=== PATIENT | male | born 1955 | race Caucasian/White ===

== ENCOUNTER 2019-11-05 08:11 | Outpatient (CLI) | payer BC, SELFPAY ==
--- NOTE | ~2019-11-05 | CT_ITS ---
EXAMINATION: CT abdomen pelvis w con EXAM DATE: 11/05/2019 08:47 INDICATION: Prostate cancer . TECHNIQUE: Spiral CT of the abdomen and pelvis was performed following intravenous injection of 100 m L Omnipaque 350. Axial, coronal and sagittal images were reviewed. The dose-length product (DLP) fo r this examination was 613.98 mGy-cm. The exposure was tailored according to patient size (auto mA e xposure control), and iterative reconstruction (ASIR) was used as additional dose reduction technique . There is no prior study for comparison. FINDINGS: The liver, spleen, adrenal glands and pancreas are unremarkable. Gallbladder is unremarkab le. No biliary obstruction. Portal and splenic veins are patent. Kidneys enhance symmetrically. T here is no hydronephrosis. The prostate is unremarkable. The bladder is unremarkable. There is no retroperitoneal or pelvic lymphadenopathy. Small umbilical fat-containing hernia. The appendix is normal. The stomach and small bowel are unremarkable. There is moderate descending a nd sigmoid colonic diverticulosis. There is no adjacent inflammatory change to suggest diverticuliti s. No free intraperitoneal gas. The heart is normal in size. There are no pericardial or pleura l effusions. The lung bases are unremarkable. There are no osteoblastic or osteolytic lesions ident ified. IMPRESSION: 1. Moderate colonic diverticulosis. 2. No evidence of metastatic disease. Reviewed, dictated and finalized at location B.
[2019-11-05 08:35] LABS: Estimated Glomerular Filt Rate > 60
== END 2019-11-05 08:12 | disposition home or self-care (01) ==
PROVIDERS: PCP Internal Medicine; Visit Provider Urology
DX: C61 Malignant neoplasm of prostate (principal); K57.30 Diverticulosis of large intestine without perforation or abscess without bleeding
CPT/HCPCS: 36415; 74177; Q9967

== ENCOUNTER 2019-12-18 09:43 | Outpatient (CLI) | payer BC, SELFPAY ==
--- NOTE | 2019-12-18 10:58 | ECG_ITS ---
Measurements Intervals Hunter Rate: 68 P: -1 VA: 228 QRS: -45 QRSD: 113 T: -22 QT: 408 QTc: 436 Interpretive Statements SINUS RHYTHM WITH FIRST DEGREE AV BLOCK VENTRICULAR COUPLET LEFT ANTERIOR FASCICULAR BLOCK POSSIBLE LEFT VENTRICULAR HYPERTROPHY BORDERLINE T WAVE ABNORMALITY- INFERIOR LEADS BASELINE ARTIFACT- I, II, III, AVR, AVL, AVF ABNORMAL ECG Electronically Signed On 12-18-2019 11:21:11 CDT by Alexey Denney D.O.
[2019-12-18 11:20] LABS: Eosinophils Absolute Auto 0.1 K/mm3 (0-0.3); Eosinophils Percent Auto 1.9 % (0-4.4); Hematocrit 46.9 % (42.0-52.0); Hemoglobin 16.7 g/dL (14.0-18.0); Immature Granulocyte Absolute 0.03 K/mm3 (0.00-0.031); Immature Granulocyte Percent A 0.7 % (0-0.5); Lymphocytes Absolute Auto 1.11 K/mm3 (0.9-3.2); Lymphocytes Percent Auto 26.7 % (18.3-44.2); Mean Corpuscular HGB Conc 35.6 g/dl (32-36); Mean Corpuscular Hemoglobin 32.7 pg (26-34); Mean Platelet Volume 9.3 fl (7.4-10.4); Monocytes Absolute Auto 0.4 K/mm3 (0.1-0.6); Monocytes Percent Auto 9.2 % (2.6-8.5); Neutrophils Absolute Auto 2.5 K/mm3 (1.3-6.7); Neutrophils Percent Auto 60.5 % (45.5-73.1); Platelet Count Result 209 k/mm3 (150-375); Red Cell Distribution Width 11.9 % (11.5-14.5); White Blood Count 4.2 K/mm3 (4.5-10.0)
[2019-12-18 11:30] LABS: Partial Thromboplastin Time 28.1 SECONDS (22.3-36.8)
[2019-12-18 11:33] LABS: Alanine Aminotransferase 31 U/L (4-50); Albumin Level 4.8 g/dL (3.5-5.1); Alkaline Phosphatase 65 U/L (38-126); Aspartate Amino Transferase 30 U/L (17-59); Bilirubin,Total 1.3 mg/dL (0.2-1.3); Blood Urea Nitrogen 21 mg/dL (9-20); Calcium 9.4 mg/dL (8.4-10.2); Carbon Dioxide 31 mmol/L (22-30); Chloride 101 mmol/L (98-107); Estimated Glomerular Filt Rate > 60; Glucose 101 mg/dL (75-110); Sodium 139 mmol/L (137-145)
== END 2019-12-18 09:44 | disposition home or self-care (01) ==
LOC: ANHSURGERY 09:46
PROVIDERS: PCP Internal Medicine; Visit Provider Urology
DX: C61 Malignant neoplasm of prostate (principal); E78.00 Pure hypercholesterolemia, unspecified; I44.0 Atrioventricular block, first degree; I44.4 Left anterior fascicular block
CPT/HCPCS: 36415; 80053; 85025; 85610; 85730; 86850; 86900; 86901; 87086; 93005

== ENCOUNTER 2019-12-26 01:31 | Outpatient (CLI) | payer BC, SELFPAY ==
[2019-12-26 18:01] LABS: SARS-CoV-2 RNA PCR Negative
== END 2019-12-26 01:32 | disposition home or self-care (01) ==
LOC: ANHCOVIDDT 01:31
PROVIDERS: PCP Internal Medicine; Visit Provider Urology
DX: Z01.812 Encounter for preprocedural laboratory examination (principal); Z20.828 Contact with and (suspected) exposure to other viral communicable diseases
CPT/HCPCS: 87635; C9803; U0003

== ENCOUNTER → 2019-12-29 03:47 | Day surgery (SDC) | payer BC, SELFPAY ==
[2019-12-18 09:55] VITALS: BP 157/93; PULSE 74; RESP 16; TEMP 37.1; O2SAT 96; BMI 27.8
--- NOTE | 2019-12-28 13:43 | WPDANESEPPF ---
Anes - Initial Pre Proc Eval Procedure: Operation Date: 12/29/19 07:30 Proposed Procedures p Robotic Assisted Nerve Sparing Prostatectomy, Possible Pelvic Lymph Node Dissection - Francisco Javier Ortiz MD Date/Time: 12/28/19 13:43 Surgeon: Francisco Javier Ortiz MD Pre Op Diagnosis: Prostate Cancer Patient Data Age: 64 Gender: M Height: 1.83 m Weight: 93.2 kg Last Vital Signs Temp 37.1 C 12/18/19 09:55 Pulse 74 12/18/19 09:55 Resp 16 12/18/19 09:55 BP 157/93 H 12/18/19 09:55 Pulse Ox 96 12/18/19 09:55 Allergies Allergy/AdvReac Type Severity Reaction Status Date / Time No Known Allergies Allergy Verified 12/18/19 10:05 Home Medications Medication Instructions Recorded Confirmed Type naproxen sodium 220 mg capsule 220 mg PO BID 03/19/19 12/18/19 History tadalafil 5 mg tablet 5 mg PO DAILY 90 Days #90 tablet 07/01/19 12/18/19 Rx simvastatin 20 mg tablet 40 mg PO QPM #180 tablet 07/07/19 12/18/19 Rx levothyroxine 50 mcg tablet 50 mcg PO DAILY #90 tablet 11/17/19 12/18/19 Rx calcium carbonate-vitamin D3 1 tablet PO DAILY 12/18/19 12/18/19 History [Calcium 600 + D(3)] esomeprazole magnesium [Nexium 20 mg PO DAILY 12/18/19 12/18/19 History 24HR] glucosamine-chondroitin 30 ml PO BID 12/18/19 12/18/19 History mecobalamin (vitamin B12) 5,000 mcg PO DAILY 12/18/19 12/18/19 History potassium chloride 99 meq PO DAILY 12/18/19 12/18/19 History Patient hx anesthesia problems: none Family hx anesthesia problems: none PMFSH Past Medical History Medical History (Updated 12/29/19 @ 06:52 by Eduardo Quijano MD) Cancer PROSTATE CANCER DIAGNOSED ~SEP, 2019 Gastroesophageal reflux disease Hypothyroidism, unspecified Mixed hyperlipidemia Overweight (BMI 25.0-29.9) Surgical History Surgical History (Updated 03/19/19 @ 13:37 by Deborah Israel RN) History of bilateral knee replacement History of hernia surgery Family History Family History (Updated 12/09/15 @ 23:19 by DOCTOR UNKNOWN) Father Malignant neoplasm of prostate Family history of diabetes mellitus in first degree relative Social History Social History Smoking status: Never smoker Second hand tobacco smoke exposure: No Alcohol intake: current Drinks per week: 4 Substance use: never Substance use type: does not use Living arrangements: with family Spiritual care concerns: No Anes - Eval Final PreProcedure Day of Procedure 12/28/19 13:43 Patient weight: overweight Heart: regular rate and rhythm Lungs: clear to auscultation and normal air movement Airway: Mallampati scale class II Neurological: alert and oriented Last oral intake: >/= 8 hours ASA classification: III Emergent: no Anesthetic plan: proceed Anesthesia type and monitoring: general ETT Informed Consent: The patient's anesthetic plan and its attendant risks and benefits were discussed with the patient/family/POA. Questions were solicited and answers provided to the satisfaction of the patient/family/POA.
[2019-12-29] VITALS (11 sets, daily range): BP systolic 111–146; BP diastolic 78–91; PULSE 75–95; RESP 11–20; TEMP 36.7–37.2; O2SAT 91–99; BMI 26.8
[2019-12-29] MEDS: LACTATED RINGERS 1,000 ML 30 ML IV CONT ×2 (06:25→12:48)
--- NOTE | 2019-12-29 07:18 | WPDHPUPDATE1 ---
History and Physical Update Update Date/Time: 12/29/19 07:18 History and Physical has been reviewed, including an updated exam of the patient. There are NO changes in the patient's condition. Risks, benefits, and alternatives have been discussed and questions answered. Patient agrees to proceed with procedure. Proceed with robotic assist nerver sparing prostatectomy with possible bilateral PLND
[2019-12-29] MEDS: ceFAZolin 2 GM/D5W 50 ML 2 GM/50 ML BAG IVPB (07:27)
--- NOTE | 2019-12-29 12:25 | P.OP_ITS ---
Procedure Note - Detailed Date of procedure: 12/29/19 Pre-op diagnosis: Prostate Cancer Post-op diagnosis: same (Significant adhesions of bowel to bilateral inguinal hernia repairs) Procedure performed: lysis of a significant bowel adhesions to prior inguinal hernia repairs Robotic assisted nerve-sparing prostatectomy with left pelvic lymph node dissection Description of procedure: patient is taken the operative suite and correctly identified. Once anesthesia was obtained he was placed in the low lying dorsal lithotomy position and prepped and draped usual sterile fashion. 18 Danish Motta was placed with 20 cc in the balloon. A supraumbilical incision was then made carried down to the rectus fascia. Veress needle was inserted the abdomen was insufflated to 15 mmHg pressure. Camera was placed under direct vision. Working ports were placed in the appropriate locations. The robot was then docked after the patient was placed in steep Trendelenburg position. It was noted that the had a significant amount of adhesions of his colon to the prior inguinal hernia repairs with mesh. It took at least 1/2 hour to 40 minutes to take these all down. Was also noted that he has significant diverticulosis of his sigmoid colon to his colon was fixated down in the pelvic area which we were able to finally mobilized. We did a posterior approach. Seminal vesicles were dissected out in their entirety and the vas were transected. The plane between the prostate and rectum was developed. bladder was then taken down. Puboprostatic were incised as was the endopelvic fascia. The space of Retzius was developed. Dorsal venous complex was isolated using 0 Vicryl secured to the pubic bone. Anterior bladder neck was then opened. Posterior bladder neck was also incised. The prior dissected seminal vesicles were visualized. We then did bilateral nerve-sparing which took a wider resection on the left side due to the significant amount of carcinoma present there. Clips were used on the pedicles. Dorsal venous complex was then transected. The anterior and your posterior urethral stump was then transected. We then did a left pelvic lymph node dissection with the boundaries being the external iliac vein Darwin liga ment and bifurcation of the vessels as well as the obturator nerve.. Clips were placed on the Proximal and distal ends of the lymph node packet. Specimens were then placed in Endo-Catch bag. We then reapproximated the posterior fascia using 0 Vicryl. The urethral stump mucosa was then anastomosed to the bladder neck using V lock suture in a running fashion. There was good approximation. Eighteen Danish Motta was placed with 10 cc in the balloon and the bladder was filled with 120 cc of sterile water. There was no evidence of extravasation at this time. All lap count needle count sponge counts were correct. A Mike- Desouza drain was placed through the 3rd arm port site and secured. Patient was taken recovery room stable condition. Anesthesia: GETA Surgeon: Francisco Javier Ortiz MD Estimated blood loss (mL): 150 Drains: Yes Packing: No Pathology: yes Complications: No immediate complications Condition: stable Disposition: PACU
--- NOTE | 2019-12-29 13:40 | SUR.PHASEI ---
1250; PT HAS BILAT SCLERAL EDEMA NOTED. HOB ELEVATED 30 DEGREES.
--- NOTE | 2019-12-29 14:27 | SUR.PHASEI ---
PT AROUSES EASILY TO VERBAL STIMULI. STATES PAIN TO ABDOMEN MILD AND TOLERABLE. MEETS DISCHARGE CRITERIA. HOW AT 30 DEGREES. PT SENT TO FLOOR WITH 2 BAGS OF BELONGINGS.
--- NOTE | 2019-12-29 14:52 | PC.NURSE ---
Returned from OR per BED [ ]. Report received from [ ].FANNY ABDOMEN SOFT WITH DISTENTION, 5 POUNCTURE SITES DANIEL AND GLUED AND DRY, J-P COMPRESSED WITH BLOODY DRAINAGE NOTED IN RESERVIOR. DENIES THE NEED FOR PAIN MEDS. FAMILY AT BEDSIDE. VAZQUEZ DRAINING CLEAR YELLOW URIINE.
--- NOTE | 2019-12-29 16:31 | PC.NURSE ---
1445 Returned from OR per [BED PUNTURE INCISIONS METAL CHECKER AND CLEAN J-P COMPRESSED WITH BLOODY DRAINAGE NOTED. DENIES THE NEED FOR PAIN, FAMILY AT BEDSIDE.
[2019-12-29] MEDS: KETOROLAC 30 MG/ML VIAL (*BKC) IV PUSH (17:55)
[2019-12-29] MEDS: SIMVASTATIN 20 MG TABLET 40 MG PO (17:56)
[2019-12-29] MEDS: DOCUSATE SODIUM 100 MG CAPSULE PO (17:56)
[2019-12-29] MEDS: HYOSCYAMINE SULFATE 0.125 MG TABLET SUBLINGUAL (21:30)
[2019-12-30 02:00] VITALS: BP 117/69; PULSE 94; RESP 16; TEMP 37.2; O2SAT 98
[2019-12-30] MEDS: HYOSCYAMINE SULFATE 0.125 MG TABLET SUBLINGUAL ×3 (02:19→13:58)
[2019-12-30] MEDS: LEVOTHYROXINE SODIUM 50 MCG TABLET PO (05:58)
[2019-12-30 06:00] VITALS: BP 95/61; PULSE 83; RESP 16; TEMP 36.9; O2SAT 93
[2019-12-30 06:17] LABS: Hematocrit 38.9 % (42.0-52.0); Hemoglobin 14.1 g/dL (14.0-18.0)
[2019-12-30 06:25] LABS: Anion Gap 5 mmol/L (8-16); Blood Urea Nitrogen 16 mg/dL (9-20); Calcium 8.5 mg/dL (8.4-10.2); Carbon Dioxide 28 mmol/L (22-30); Chloride 102 mmol/L (98-107); Estimated CRCL calculation 68 ml/min; Estimated Glomerular Filt Rate > 60; Glucose 116 mg/dL (75-110); Sodium 135 mmol/L (137-145)
--- NOTE | 2019-12-30 08:03 | WPDUROPN2 ---
Progress Note: A&P Assessment and Plan (1) Adenocarcinoma of prostate: Code(s): C61 - Malignant neoplasm of prostate Status: Acute Assessment and Plan: postop day 1. Overall doing well. Blood pressure slightly low this morning will recheck. Need to start ambulating patient. We will re-evaluate later this afternoon. If all is clinically stable may consider discharge with Motta catheter. Will decide on BUSTER based on drainage during the day. Subjective Subjective Date/Time Seen: 12/30/19 08:03 Post Op day: 1 Principal diagnosis: Adenocarcinoma of the prostate Interval history: postop day 1. Robotic assisted nerve-sparing prostatectomy with left pelvic lymph node dissection. Overall doing well. Minimal pain except for the midline incision. Review of Systems Review of Systems: All systems reviewed & are unremarkable except as noted in HPI and below Exam Const: General: comfortable Resp: Effort & Inspection: normal respiratory effort Cardio: Rhythm: regular rhythm GI: Inspection: distended Other: Mild abdomina : Other: mild abdominal distention with about tenderness Objective Data Vital Signs Vital Signs: Vital Signs - 24 hr 12/29/19 12:48 12/29/19 13:00 12/29/19 13:15 Temperature 36.8 C Pulse Rate 77 78 75 Respiratory Rate 12 16 14 Blood Pressure 111/78 132/87 130/88 Pulse Oximetry 97 99 98 12/29/19 13:30 12/29/19 13:45 12/29/19 14:00 Temperature Pulse Rate 79 79 88 Respiratory Rate 12 11 L 14 Blood Pressure 137/78 118/90 116/78 Pulse Oximetry 93 91 94 12/29/19 14:15 12/29/19 14:45 12/29/19 18:44 Temperature Pulse Rate 89 89 89 Respiratory Rate 14 14 14 Blood Pressure 121/85 Pulse Oximetry 94 94 94 12/29/19 21:57 12/30/19 02:00 12/30/19 06:00 Temperature 37.2 C 37.2 C 36.9 C Pulse Rate 95 94 83 Respiratory Rate 18 16 16 Blood Pressure 128/90 117/69 95/61 L Pulse Oximetry 99 98 93 Intake/Output Intake/Output: Intake & Output 12/27/19 12/28/19 12/29/19 12/30/19 23:59 23:59 23:59 23:59 Intake Total 400 600 Output Total 220 1100 Balance 180 -500 Meds/Results Medications: Active Medications Generic Name Dose Route Start Last Admin Trade Name Freq PRN Reason Stop Dose Admin Hydrocodone Bitart/Acetaminophen 1 tab 12/29/19 14:30 [place] 5-325 Mg PO Q6H PRN Pain Rated 1-3 Hydrocodone Bitart/Acetaminophen 2 tab 12/29/19 14:30 12/30/19 02:20 [place] 5-325 Mg PO 2 tab Q6H PRN Administration Pain Rated 4-6 Docusate Sodium 100 mg 12/29/19 17:00 12/29/19 17:56 Colace Capsule PO 100 mg BID EMMANUEL Administration Hyoscyamine 0.125 mg 12/29/19 14:30 12/30/19 05:58 Levsin Tablet SUBLINGUAL 0.125 mg Q4H PRN Administration Bladder Spasm Ketorolac Tromethamine 30 mg 12/29/19 14:30 12/29/19 17:55 Toradol Inj IV PUSH 12/30/19 14:31 30 mg Q6H PRN Administration Pain Rated 4-6 Levothyroxine Sodium 50 mcg 12/30/19 06:30 12/30/19 05:58 Synthroid PO 50 mcg DAILY@0630 EMMANUEL Administration Morphine Sulfate 1 - 2 mg 12/29/19 14:30 Morphine Sulfate Inj IV PUSH Q2H PRN Pain Rated 7-10 Ondansetron HCl 4 mg 12/29/19 14:30 Zofran Inj IV PUSH Q6H PRN Nausea And Vomiting Simvastatin 40 mg 12/29/19 18:00 12/29/19 17:56 Zocor PO 40 mg QPM EMMANUEL Administration Labs Labs: Laboratory Results - last 24 hr 12/30/19 12/30/19 05:48 05:48 Hgb 14.1 Hct 38.9 L Sodium 135 L Potassium 4.0 Chloride 102 Carbon Dioxide 28 Anion Gap 5 L BUN 16 Creatinine 1.10 Estim Creat Clear Calc 68 Estimated GFR > 60 Glucose 116 H Calcium 8.5
[2019-12-30 08:07] VITALS: BP 107/61
[2019-12-30] MEDS: DOCUSATE SODIUM 100 MG CAPSULE PO (08:12)
--- NOTE | 2019-12-30 09:00 | WPDANESPN ---
Anes - Prog Note Post-Op Date/Time: 12/30/19 09:00 Cardiovascular status: normal Respiratory status: normal Airway patency: baseline Mental status: baseline Post-Op hydration status: normal Vital Signs: Last Vital Signs Temp 36.9 C 12/30/19 06:00 Pulse 83 12/30/19 06:00 Resp 16 12/30/19 06:00 BP 107/61 12/30/19 08:07 Pulse Ox 93 12/30/19 06:00 I/O: Intake & Output 12/29/19 12/30/19 12/30/19 23:59 07:59 15:59 Intake Total 600 Output Total 110 1100 Balance -110 -500 Laboratory Tests 12/30/19 05:48 12/30/19 05:48 12/30/19 12/30/19 05:48 05:48 Hgb 14.1 Hct 38.9 L Sodium 135 L Potassium 4.0 Chloride 102 Carbon Dioxide 28 Anion Gap 5 L BUN 16 Creatinine 1.10 Estim Creat Clear Calc 68 Estimated GFR > 60 Glucose 116 H Calcium 8.5 Post-procedural complaints: none Patient Feedback: Patient satisfied with anesthetic care.
--- NOTE | 2019-12-30 12:57 | WPDUROPN2 ---
Progress Note: A&P Assessment and Plan (1) Adenocarcinoma of prostate: Code(s): C61 - Malignant neoplasm of prostate Status: Acute Assessment and Plan: Ok to discharge home with raphael and BUSTER drain today. (2) Benign non-nodular prostatic hyperplasia with lower urinary tract symptoms: Code(s): N40.1 - Benign prostatic hyperplasia with lower urinary tract symptoms Status: Acute Subjective Subjective Date/Time Seen: 12/30/19 12:57 POD #1 Lysis of Bowel Adhesions, Robotic Assisted Nerve Sparing Prostatectomy with left pelvic lymph node dissection. Patient doing well today, minimal pain, BUSTER drain is putting out moderate drainage. He is tolerating diet and activity. Review of Systems Cardiovascular: Cardiovascular: Denies chest pain Respiratory: Respiratory: Reports no additional respiratory complaints Gastrointestinal: Gastrointestinal: Denies abdominal pain, Denies nausea and Denies vomiting Genitourinary: Genitourinary: Denies hematuria Exam Resp: Effort & Inspection: normal respiratory effort Cardio: Rate: regular rate GI: Inspection: incision (all are well approximated, no drainage present, edema or eyrthema) GI Palp: Yes Soft to palpation and Yes Tenderness to palpation present (GI) (at incision sites only, BUSTER drain is in place and draining bloody drainage) : General: Yes no CVA tenderness Urinary Catheter: Urinary Catheter: patent and draining and urine clear Extrem: General: no edema Objective Data Vital Signs Vital Signs: Vital Signs - 24 hr 12/29/19 13:00 12/29/19 13:15 12/29/19 13:30 Temperature Pulse Rate 78 75 79 Respiratory Rate 16 14 12 Blood Pressure 132/87 130/88 137/78 Pulse Oximetry 99 98 93 12/29/19 13:45 12/29/19 14:00 12/29/19 14:15 Temperature Pulse Rate 79 88 89 Respiratory Rate 11 L 14 14 Blood Pressure 118/90 116/78 121/85 Pulse Oximetry 91 94 94 12/29/19 14:45 12/29/19 18:44 12/29/19 21:57 Temperature 99.0 F Pulse Rate 89 89 95 Respiratory Rate 14 14 18 Blood Pressure 128/90 Pulse Oximetry 94 94 99 12/30/19 02:00 12/30/19 06:00 12/30/19 08:07 Temperature 98.9 F 98.5 F Pulse Rate 94 83 Respiratory Rate 16 16 Blood Pressure 117/69 95/61 L 107/61 Pulse Oximetry 98 93 Intake/Output Intake/Output: Intake & Output 12/27/19 12/28/19 12/29/19 12/30/19 23:59 23:59 23:59 23:59 Intake Total 400 600 Output Total 220 1100 Balance 180 -500 Meds/Results Medications: Active Medications Generic Name Dose Route Start Last Admin Trade Name Freq PRN Reason Stop Dose Admin Hydrocodone Bitart/Acetaminophen 1 tab 12/29/19 14:[address] 5-325 Mg PO Q6H PRN Pain Rated 1-3 Hydrocodone Bitart/Acetaminophen 2 tab 12/29/19 14:30 12/30/19 02:[address] 5-325 Mg PO 2 tab Q6H PRN Administration Pain Rated 4-6 Docusate Sodium 100 mg 12/29/19 17:00 12/30/19 08:12 Colace Capsule PO 100 mg BID EMMANUEL Administration Hyoscyamine 0.125 mg 12/29/19 14:30 12/30/19 05:58 Levsin Tablet SUBLINGUAL 0.125 mg Q4H PRN Administration Bladder Spasm Ketorolac Tromethamine 30 mg 12/29/19 14:30 12/29/19 17:55 Toradol Inj IV PUSH 12/30/19 14:31 30 mg Q6H PRN Administration Pain Rated 4-6 Levothyroxine Sodium 50 mcg 12/30/19 06:30 12/30/19 05:58 Synthroid PO 50 mcg DAILY@0630 EMMANUEL Administration Morphine Sulfate 1 - 2 mg 12/29/19 14:30 Morphine Sulfate Inj IV PUSH Q2H PRN Pain Rated 7-10 Ondansetron HCl 4 mg 12/29/19 14:30 Zofran Inj IV PUSH Q6H PRN Nausea And Vomiting Simvastatin 40 mg 12/29/19 18:00 12/29/19 17:56 Zocor PO 40 mg QPM EMMANUEL Administration Labs Labs: Laboratory Results - last 24 hr 12/30/19 12/30/19 05:48 05:48 Hgb 14.1 Hct 38.9 L Sodium 135 L Potassium 4.0 Chloride 102 Carbon Dioxide 28 Anion Gap 5 L BUN 16 Creatinine 1.10 Estim Creat Clear Calc 68 Estima
--- NOTE | 2019-12-30 13:02 | PM.DS ---
DS: Admitting Diagnosis Admitting Diagnosis Admitting Diagnosis: Prostate Cancer DS: Discharge Diagnosis Discharge Diagnosis (1) Adenocarcinoma of prostate: Code(s): C61 - Malignant neoplasm of prostate Status: Acute Assessment and Plan: Patient will follow up this Saturday01/01/2020 at 9:30am with Darlene KWON for BUSTER drain removal, he will keep track of drain totals over the next two days and then he will follow up for for cystogram on 01/07/2020 in Radiology at 10am, arrive at 9:30. He will then follow up in the office immediately afterward to have raphael removed if anastomosis is healed. DS: Summary Time Spent with Patient Time attestation: Total time spent providing and/or coordinating discharge services: Pre-Op Diagnosis Bowel Adhesions and Prostate Cancer Post OP diagnosis: Bowel Adhesions, PRostate Cancer. Patient underwent Lysis of Bowel Adhesions, Robotic Assisted Nerve Sparing PRostatectomy with left pelvic lymph node dissection on 12/29/[address] Ortiz. He tolerated procedure well, was then sent to recovery in stable condition, and to the floor for further observation. He continues to do well and will go home today on a diet as tolerated, activity- no straining, resume all home medications in addition to Hydrocodone and Bactrim. Exam Resp: Effort & Inspection: normal respiratory effort Cardio: Rate: regular rate GI: Inspection: incision (well approximated, no drainage or edema present) GI Palp: Yes Soft to palpation and Yes Tenderness to palpation present (GI) (at incisions only) : General: Yes no CVA tenderness Urinary Catheter: Urinary Catheter: patent and draining and urine clear Extrem: General: no edema DS: Data Data Completed and Pending Pending studies at discharge: Pending at discharge 12/29/19 11:58 Surgical [PTH] Routine Labs on day of discharge: Labs from last 24 hours 12/30/19 12/30/19 05:48 05:48 Hgb 14.1 Hct 38.9 L Sodium 135 L Potassium 4.0 Chloride 102 Carbon Dioxide 28 Anion Gap 5 L BUN 16 Creatinine 1.10 Estim Creat Clear Calc 68 Estimated GFR > 60 Glucose 116 H Calcium 8.5 Discharge Plan Discharge Attending physician on discharge: Francisco Javier Ortiz Discharging Clinician: Darlene Vasquez Patient Disposition: Home, Self-Care Activity: may shower and no straining Diet: as tolerated Wound Care Instructions: keep dressing dry, remove dressing to shower, change dressing daily and incision open to air Discharge Instructions: Patient will follow up this Saturday01/01/2020 at 9:30am with Darlene KWON for BUSTER drain removal, he will keep track of drain totals over the next two days and then he will follow up for for cystogram on 01/07/2020 in Radiology at 10am, arrive at 9:30. He will then follow up in the office immediately afterward to have raphael removed if anastomosis is healed. Patient Instructions: Antibiotic Form, Pain Management (GEN) Stand Alone Forms: General Discharge Information Follow-up/Referrals: Francisco Javier Ortiz MD [Physician] - Discharge Medications: New hydrocodone-acetaminophen 5-325 mg Tablet 1 tab PO Q6H PRN (Reason: Pain Rated 1-3) Qty: 20 RF: 0 sulfamethoxazole-trimethoprim [Bactrim DS] 800-160 mg tablet 1 tablet PO DAILY Qty: 7 RF: 0 Continued naproxen sodium [Aleve] 220 mg capsule 220 mg PO BID RF: 0 tadalafil 5 mg tablet 5 mg PO DAILY 90 Days Qty: 90 RF: 1 esomeprazole magnesium [Nexium 24HR] 20 mg Capsule,Delayed Release(Dr/Ec) 20 mg PO DAILY RF: 0 glucosamine-chondroitin 1,500-1,200 mg/30 mL Liquid 30 ml PO BID RF: 0 calcium carbonate-vitamin D3 [Calcium 600 + D(3)] 600 mg(1,500mg) -400 unit Tablet 1 tablet PO DAILY RF: 0 mecobalamin (vitamin B12) 5,000 mcg Tablet,Disintegrating 5,000 mcg PO DAILY RF: 0 potassium chloride 20 mEq Tablet Extended Release 99 meq PO DAILY RF: 0 simvastatin 20
== END | DRG 708 ==
LOC: ANHSURGERY 05:42 → ANH3MEDSUR 12-30 06:58 → ANHSURGERY 01-07 07:52
PROVIDERS: PCP Internal Medicine; Visit Provider Urology
PROC: 0VT04ZZ Resection of Prostate, Percutaneous Endoscopic Approach (ICD-10-PCS; CPT 55867; principal; 2019-12-29 07:30)
DX: C61 Malignant neoplasm of prostate (principal); K66.0 Peritoneal adhesions (postprocedural) (postinfection); K57.30 Diverticulosis of large intestine without perforation or abscess without bleeding; K21.9 Gastro-esophageal reflux disease without esophagitis; E78.2 Mixed hyperlipidemia; E03.9 Hypothyroidism, unspecified; Z96.653 Presence of artificial knee joint, bilateral
CPT/HCPCS: 55866; 38570; 36415; 80048; 85014; 85018; 87635; 88305; 88307; 88309; A9270; C9803; J0131; J0690; J1100; J1170; J1885; J2250; J2405; J2704; J2710; J3010; J7030; J7120; Q9968; U0003

== ENCOUNTER 2020-01-07 09:23 | Outpatient (CLI) | payer BC, SELFPAY ==
--- NOTE | ~2020-01-07 | XR_ITS ---
EXAMINATION: XR cystogram EXAM DATE: 01/07/2020 10:19 INDICATION: Prostatectomy. TECHNIQUE: Cystogram performed through Motta catheter in place on patient arrival. Patient tolerated approximately 175 mL of Omnipaque 350 solution. Dose reduction digital pulsed fluoroscopy was used a t 4 frames per second with DAP 37 Gycm2. FINDINGS: Normal bladder contour. There is no contrast extravasation, bladder diverticulosis or urete ral reflux on the examination. IMPRESSION: Normal postoperative cystogram. Reviewed, dictated and finalized at location A.
== END 2020-01-07 09:24 | disposition home or self-care (01) ==
LOC: ANHIMG 09:26
PROVIDERS: PCP Internal Medicine; Visit Provider Urology
DX: C61 Malignant neoplasm of prostate (principal)
CPT/HCPCS: 51600; 74430; Q9967

== ENCOUNTER 2020-03-18 06:59 | Outpatient (NON) | payer BC, SELFPAY ==
[2020-03-19 01:31] LABS: SARS-CoV-2 RNA PCR Negative
== END 2020-03-18 07:00 ==
PROVIDERS: PCP Internal Medicine; Visit Provider Internal Medicine
DX: Z20.828 Contact with and (suspected) exposure to other viral communicable diseases (principal)
CPT/HCPCS: 87635; C9803; U0003

== ENCOUNTER 2022-10-12 02:53 | Day surgery (SDC) | payer MEDICARE, OTHER, SELFPAY ==
[2022-10-02 15:10] VITALS: BMI 27.8
[2022-10-12 08:14] VITALS: BP 125/86; PULSE 61; RESP 16; TEMP 36.5; O2SAT 97
[2022-10-12] MEDS: LACTATED RINGERS 1,000 ML 150 ML IV CONT (08:26)
--- NOTE | 2022-10-12 08:35 | WPDANESEPPF ---
Anes - Initial Pre Proc Eval Procedure: Operation Date: 10/12/22 09:15 Proposed Procedures p Colonoscopy - Oli Hooker MD Date/Time: 10/12/22 08:35 Surgeon: Oli Hooker MD Pre Op Diagnosis: hx colon polyps Patient Data Age: 67 Gender: M Height: 1.83 m Weight: 91.3 kg Last Vital Signs Temp 97.7 F 10/12/22 08:14 Pulse 61 10/12/22 08:14 Resp 16 10/12/22 08:14 BP 125/86 10/12/22 08:14 Pulse Ox 97 10/12/22 08:14 O2 Del Method Room Air 10/12/22 08:14 Allergies Allergy/AdvReac Type Severity Reaction Status Date / Time No Known Allergies Allergy Verified 10/12/22 08:13 Home Medications Medication Instructions Recorded Confirmed Type calcium carbonate 600 mg-vitamin 1 tablet PO DAILY 12/18/19 10/12/22 History D3 10 mcg (400 unit) tablet (Calcium 600 + D(3)) esomeprazole magnesium 20 mg 20 mg PO DAILY 12/18/19 10/12/22 History capsule,delayed release (Nexium 24HR) levothyroxine 50 mcg tablet 50 mcg PO DAILY 90 days #90 tabs 04/13/22 10/12/22 Rx icosapent ethyl 1 gram capsule 2 g PO BID 04/20/22 10/12/22 History (Vascepa) ascorbic acid (vitamin C) 2,000 mg 2,000 mg PO DAILY 10/02/22 10/12/22 History tablet,extended release cholecalciferol (vitamin D3) 125 125 mcg PO DAILY 10/02/22 10/12/22 History mcg (5,000 unit) tablet (Vitamin D3) glucosamine sulf dipotassium Cl 2 tablet PO DAILY 10/02/22 10/12/22 History 750 mg-chondroitin sulf 600 mg tablet (Glucosamine-Chondroitin 3X Triple Strength) uymkwwnx-czc-bgqsl acid 300 1 tablet PO DAILY 10/02/22 10/12/22 History mcg-lycopene 600 mcg-lutein 300 mcg tablet (Centrum Silver Men) naproxen sodium 220 mg capsule 220 mg PO DAILY 10/02/22 10/12/22 History (Aleve) potassium 99 mg tablet 99 mg PO DAILY 10/02/22 10/12/22 History simvastatin 40 mg tablet 40 mg PO DAILY 10/02/22 10/12/22 History Patient hx anesthesia problems: none Family hx anesthesia problems: none Results Review: All pre-operative results and documents have been reviewed as part of the pre-operative evaluation. [facility] Past Medical History Medical History Cancer PROSTATE CANCER DIAGNOSED ~SEP, 2019 Gastroesophageal reflux disease Hypothyroidism, unspecified Mixed hyperlipidemia KALI (obstructive sleep apnea) Overweight (BMI 25.0-29.9) Screening for colon cancer Surgical History Surgical History History of bilateral knee replacement History of hernia surgery Family History Family History Father Malignant neoplasm of prostate Family history of diabetes mellitus in first degree relative Pancreatic cancer Social History Social History Smoking status: Never smoker Second hand tobacco smoke exposure: No Alcohol intake: current Drinks per week: 4 Substance use: never Substance use type: does not use Living arrangements: with family Spiritual care concerns: No Anes - Eval Final PreProcedure Day of Procedure 10/12/22 08:35 Patient weight: normal Heart: regular rate and rhythm Lungs: clear to auscultation Airway: Mallampati scale class II Neurological: alert and oriented Last oral intake: >/= 8 hours ASA classification: III Emergent: no Anesthetic plan: proceed Anesthesia type and monitoring: general GIVS and standard monitoring Results Review: All pre-operative results and documents have been reviewed as part of the pre-operative evaluation. Informed Consent: The patient's anesthetic plan and its attendant risks and benefits were discussed with the patient/family/POA. Questions were solicited and answers provided to the satisfaction of the patient/family/POA.
--- NOTE | 2022-10-12 09:00 | PM.HPGS ---
History of Present Illness History of Present Illness Consent: Risks, benefits, and alternatives have been discussed and questions answered. Patient agrees to proceed with procedure. Chief complaint: hx colon polyps Narrative: Fred Marie is a 67 year old male Presents for screening colonoscopy. Patient has a prior history of adenomatous colon polyps. Patient reports that his current weight appetite and bowel movements are normal. Patient denies abdominal pain. He has had no bleeding. There is no known family history of colon or rectal disease. Review of Systems Review of Systems: Review of systems noncontributory. [facility], [facility] Past Medical History Medical History Cancer PROSTATE CANCER DIAGNOSED ~SEP, 2019 Gastroesophageal reflux disease Hypothyroidism, unspecified Mixed hyperlipidemia KALI (obstructive sleep apnea) Overweight (BMI 25.0-29.9) Screening for colon cancer Surgical History Surgical History History of bilateral knee replacement History of hernia surgery Family History Family History Father Malignant neoplasm of prostate Family history of diabetes mellitus in first degree relative Pancreatic cancer Social History Social History Smoking status: Never smoker Second hand tobacco smoke exposure: No Alcohol intake: current Drinks per week: 4 Substance use: never Substance use type: does not use Living arrangements: with family Spiritual care concerns: No Meds Home Medications and Allergies Home Medications Medication Instructions Recorded Confirmed Type calcium carbonate 600 mg-vitamin 1 tablet PO DAILY 12/18/19 10/12/22 History D3 10 mcg (400 unit) tablet (Calcium 600 + D(3)) esomeprazole magnesium 20 mg 20 mg PO DAILY 12/18/19 10/12/22 History capsule,delayed release (Nexium 24HR) levothyroxine 50 mcg tablet 50 mcg PO DAILY 90 days #90 tabs 04/13/22 10/12/22 Rx icosapent ethyl 1 gram capsule 2 g PO BID 04/20/22 10/12/22 History (Vascepa) ascorbic acid (vitamin C) 2,000 mg 2,000 mg PO DAILY 10/02/22 10/12/22 History tablet,extended release cholecalciferol (vitamin D3) 125 125 mcg PO DAILY 10/02/22 10/12/22 History mcg (5,000 unit) tablet (Vitamin D3) glucosamine sulf dipotassium Cl 2 tablet PO DAILY 10/02/22 10/12/22 History 750 mg-chondroitin sulf 600 mg tablet (Glucosamine-Chondroitin 3X Triple Strength) mqvdwjiz-xqx-rscrz acid 300 1 tablet PO DAILY 10/02/22 10/12/22 History mcg-lycopene 600 mcg-lutein 300 mcg tablet (Centrum Silver Men) naproxen sodium 220 mg capsule 220 mg PO DAILY 10/02/22 10/12/22 History (Aleve) potassium 99 mg tablet 99 mg PO DAILY 10/02/22 10/12/22 History simvastatin 40 mg tablet 40 mg PO DAILY 10/02/22 10/12/22 History Allergies Allergy/AdvReac Type Severity Reaction Status Date / Time No Known Allergies Allergy Verified 10/12/22 08:13 Vital Signs Vital Signs - 24 hr 10/12/22 08:14 Temperature 97.7 F Pulse Rate 61 Respiratory Rate 16 Blood Pressure 125/86 Pulse Oximetry 97 Oxygen Delivery Room Air Exam Narrative: Physical exam reveals patient to be alert. Vital signs stable. HEENT exam is unremarkable. Patient is anicteric. Lungs are clear to auscultation and percussion. Heart is without murmur or extra sounds. Abdomen bowel sounds are present soft nontender with no hepatosplenomegaly . digital rectal exam is normal. Assessment and Plan Assessment and plan (1) Screening for colon cancer: Code(s): Z12.11 - Encounter for screening for malignant neoplasm of colon Status: Acute Assessment and Plan: Patient presents today for screening colonoscopy. He does have a prior history of colon polyps. Further recom
[2022-10-12 09:25] VITALS: BP 99/67; PULSE 70; RESP 22; O2SAT 96
[2022-10-12 09:35] VITALS: BP 102/60; PULSE 74; RESP 22; O2SAT 96
[2022-10-12 09:45] VITALS: BP 120/78; PULSE 84; RESP 20; O2SAT 97
[2022-10-12] MEDS: PROPARACAINE HCL 0.5% 15 ML OPHTH SOLN 1 DROP EACH EYE (09:53)
[2022-10-12] MEDS: DICLOFENAC SODIUM 0.1% OPHTH SOLN 2.5 ML BOTTLE 1 DROP EACH EYE (09:54)
--- NOTE | 2022-10-12 09:56 | SUR.PHASEII ---
0945: DR BAUM MADE AWARE PT'S EYE IS WATERING, RED, PAINFUL. DR BAUM SAW PT AND ORDER CORNEAL ABRASION PROTOCOL. PROTOCOL INITIATED AND PT EDUCATED TO GO TO EYE DOCTOR IF EYE ISSUES CONTINUE
== END 2022-10-12 10:05 | disposition home or self-care (01) ==
PROVIDERS: PCP Family Medicine; Visit Provider Internal Medicine Gastroenterology
PROC: 0DJD8ZZ Inspection of Lower Intestinal Tract, Via Natural or Artificial Opening Endoscopic (ICD-10-PCS; CPT 45378; principal; 2022-10-12 09:15)
DX: Z12.11 Encounter for screening for malignant neoplasm of colon (principal); K57.30 Diverticulosis of large intestine without perforation or abscess without bleeding; K64.8 Other hemorrhoids; Z86.010 Personal history of colon polyps; E78.2 Mixed hyperlipidemia; E03.9 Hypothyroidism, unspecified; K21.9 Gastro-esophageal reflux disease without esophagitis; G47.33 Obstructive sleep apnea (adult) (pediatric); Z85.46 Personal history of malignant neoplasm of prostate
CPT/HCPCS: G0105; A9270; J2704; J7120

== ENCOUNTER 2022-12-13 11:20 | Outpatient (CLI) | payer MEDICARE, SELFPAY ==
[2022-12-13 12:38] LABS: Hematocrit 44.9 % (42.0-52.0); Hemoglobin 16.1 g/dL (14.0-18.0)
[2022-12-13 12:52] LABS: Hemoglobin A1C 5.3 % (<5.7)
== END 2022-12-13 11:21 | disposition home or self-care (01) ==
LOC: ANHSURGERY 11:23
PROVIDERS: Anesthesiology; PCP Family Medicine; Visit Provider Urology
DX: Z01.818 Encounter for other preprocedural examination (principal); N52.9 Male erectile dysfunction, unspecified; N39.3 Stress incontinence (female) (male)
CPT/HCPCS: 36415; 83036; 85014; 85018; 87086

== ENCOUNTER 2022-12-26 00:35 | Day surgery (SDC) | payer MEDICARE, SELFPAY ==
[2022-12-13 11:37] VITALS: BP 141/87; PULSE 74; RESP 16; TEMP 37.2; O2SAT 97; BMI 28.2
--- NOTE | 2022-12-13 11:49 | PC.NURSE ---
Report to the Outpatient Waiting Room, entrance under the green pavilion located off [facility], at time __9:00AM on date __12/26/22 . Planned Procedure Time: __11:00AM . Time changes happen often and if your time is changed the preop area will call you the afternoon before. - You and your visitor will be asked to self-screen and do not enter if you have any COVID symptoms. - A mask is optional within the hospital at this time. Patients may have clear liquids (water, carbonated beverages, clear teas, apple juice) until 3 hours prior to surgery with a maximum of 20 ounces. - No food from midnight until time of surgery. Take the following medications with a SIP of water the morning of surgery: __LEVOFLOXACIN, LEVOTHYROXINE DO NOT STOP ANY OF YOUR OTHER PRESCRIPTION MEDICATIONS PRIOR TO SURGERY ?EXCEPT THE FOLLOWING Medications to discontinue per physician ___HOLD ALL VITAMINS/SUPPLEMENTS 3 DAYS PRE-OP PER ANESTHESIA Date to take last dose___12/22/22 Please no make-up, nail greek, hairspray, perfume, deodorant, or body powder the day of surgery. No jewelry (including any body piercings) or valuables the day of surgery, leave them at home. Please take a shower or bath the night before, or the morning of, surgery with an antibacterial soap. Wear comfortable, loose fitting clothing. Children are encouraged to wear pajamas. - Jewelry must be removed prior to entering the operating room. Rings and piercings that are not removed may be cut off. - The hospital will not accept responsibility for valuables. - Please leave all valuables, including medications, at home the day of surgery. If you are going home after surgery, a licensed putaway driver must drive you home. - NO public transportation without another adult if you receive anesthesia. - We recommend that an adult stay with you for 24 hours following discharge. - We also recommend that you do not drive, make important decision, drink alcoholic beverages, or take any drugs that were not prescribed by your health care provider for at least 24 hours after your discharge time. Follow any additional instructions given to you from your surgeon. If you or anyone in your household have experienced Covid symptoms in the past week, please notify your surgeon or the nurse liaison at the phone number below for possible testing. Telephone instructions given to __PATIENT and asked if any additional questions and then verbalized understanding. Patient advised to call surgeon office or pre surgery nurse liaison [phone] if any additional questions.
[2022-12-26] VITALS (12 sets, daily range): BP systolic 100–142; BP diastolic 58–98; PULSE 52–93; RESP 12–17; TEMP 36.1–36.3; O2SAT 93–100
[2022-12-26] MEDS: GENTAMICIN SULFATE INJ 470 MG in DEXTROSE 5% 100 ML 100 MG IVPB (09:15)
[2022-12-26] MEDS: LACTATED RINGERS 1,000 ML 30 ML IV CONT ×3 (09:30→16:03)
--- NOTE | 2022-12-26 11:18 | WPDANESEPPF ---
Anes - Initial Pre Proc Eval Procedure: Operation Date: 12/26/22 11:00 Proposed Procedures p Insertion Penile Implant - Srikanth Banegas MD s Male Sling - Srikanth Banegas MD Date/Time: 12/26/22 11:18 Surgeon: Srikanth Banegas MD Pre Op Diagnosis: erectile dysfunction,stress incontinence Patient Data Age: 67 Gender: M Height: 1.83 m Weight: 91.8 kg Last Vital Signs Temp 36.1 C L 12/26/22 10:30 Pulse 52 L 12/26/22 10:30 Resp 16 12/26/22 10:30 BP 142/98 H 12/26/22 10:30 Pulse Ox 99 12/26/22 10:30 O2 Del Method Room Air 12/26/22 10:30 Allergies Allergy/AdvReac Type Severity Reaction Status Date / Time No Known Allergies Allergy Verified 12/26/22 10:39 Home Medications Medication Instructions Recorded Confirmed Type calcium carbonate 600 mg-vitamin 1 tablet PO DAILY 12/18/19 12/13/22 History D3 10 mcg (400 unit) tablet (Calcium 600 + D(3)) esomeprazole magnesium 20 mg 20 mg PO HS 12/18/19 12/13/22 History capsule,delayed release (Nexium 24HR) glucosamine sulf dipotassium Cl 2 tablet PO DAILY 10/02/22 12/13/22 History 750 mg-chondroitin sulf 600 mg tablet (Glucosamine-Chondroitin 3X Triple Strength) mqlriynp-se-jnfwl 300 mcg-K 60 1 tablet PO DAILY 10/02/22 12/13/22 History mcg-lycop 600 mcg-lutein 300 mcg tablet (Centrum Silver Men) naproxen sodium 220 mg capsule 220 mg PO BID 10/02/22 12/13/22 History (Aleve) potassium 99 mg tablet 99 mg PO DAILY 10/02/22 12/13/22 History simvastatin 40 mg tablet 40 mg PO DAILY #90 tabs 10/14/22 12/13/22 Rx icosapent ethyl 1 gram capsule 2 g PO BID #360 caps 12/04/22 12/13/22 Rx (Vascepa) ascorbic acid (vitamin C) 1,000 mg 1 g PO DAILY 12/13/22 12/13/22 History tablet cholecalciferol (vitamin D3) 25 25 mcg PO DAILY 12/13/22 12/13/22 History mcg (1,000 unit) tablet levofloxacin 500 mg tablet 500 mg PO DAILY 12/13/22 12/13/22 History levothyroxine 50 mcg tablet 50 mcg PO QAM 12/13/22 12/13/22 History Patient hx anesthesia problems: none Family hx anesthesia problems: none Results Review: All pre-operative results and documents have been reviewed as part of the pre-operative evaluation. [facility] Past Medical History Medical History Cancer PROSTATE CANCER DIAGNOSED ~SEP, 2019 Gastroesophageal reflux disease Hypothyroidism, unspecified Mixed hyperlipidemia KALI (obstructive sleep apnea) Overweight (BMI 25.0-29.9) Preoperative clearance Screening for colon cancer Surgical History Surgical History History of bilateral knee replacement History of colonoscopy History of hernia surgery Family History Family History Father Malignant neoplasm of prostate Family history of diabetes mellitus in first degree relative Pancreatic cancer Social History Social History Smoking status: Never smoker Second hand tobacco smoke exposure: No Alcohol intake: current Drinks per week: 7 Substance use: never Substance use type: does not use Living arrangements: with family Additional living arrangements comments: Spiritual care concerns: No Anes - Eval Final PreProcedure Day of Procedure 12/26/22 11:18 Patient weight: overweight Heart: regular rate and rhythm Lungs: clear to auscultation Airway: Mallampati scale class II Neurological: alert and oriented Last oral intake: >/= 8 hours ASA classification: III Emergent: no Anesthetic plan: proceed Anesthesia type and monitoring: general ETT and standard monitoring Results Review: All pre-operative results and documents have been reviewed as part of the pre-operative evaluation. Informed Consent: The patient's anesthetic plan and its attendant risks and benefits were discussed with the patient/fa
--- NOTE | 2022-12-26 11:44 | WPDHPUPDATE1 ---
History and Physical Update Update Date/Time: 12/26/22 11:44 History and Physical has been reviewed, including an updated exam of the patient. There are NO changes in the patient's condition. Risks, benefits, and alternatives have been discussed and questions answered. Patient agrees to proceed with procedure.
--- NOTE | 2022-12-26 16:08 | P.OP_ITS ---
Procedure Note - Detailed Date of Procedure 12/26/22 Pre-op Diagnosis erectile dysfunction,stress incontinence Post-op Diagnosis Same Procedure Performed 1. Placement of AMS Advance male sling. 2. 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 This was repaired and AdVance male sling placed with good coaptation the external sphincter -scheduled penile implant not performed due to complexity of sling procedure Description of Procedure Informed consent was obtained. The patient was taken to the operating room and given preoperative IV antibiotics with vancomycin and gentamicin, the patient has received oral Levaquin for the past 48 hours at home, and has done a 3-day Hibiclens wash. The patient was induced with general anesthesia. We then shaved, and the patient received a Betadine scrub followed by ChloraPrep. The patient was in the dorsal lithotomy position. A 16-Yi Motta catheter was inserted.We made a 3 cm incision in the perineum. We then dissected down and identified the bulbar spongiosis muscle. The muscle layer was opened sharply. There was more bleeding than typical that was controlled with minimal cauterization and we carefully dissected at this point. We noted that the corpus spongiosum was significantly adhered to the muscle at the point of dissection and that the corporus spongiosum had been opened. At this point we performed cystoscopy and confirmed that there was no injury to the urethra and no extravasation. To confirm lack of extravasation methylene blue was placed through the urethral meatus and there was no leakage. After confirming that there was no injury to the urethra itself, we then closed the corpora spongiosis at this point phone consultation with Dr. Juan Daniel Rivas who consults for [employer] and my partner Dr. Tanner Paul who agreed that it was safe to proceed with sling placement. We then mobilized central tendon for approximately 2 cm. This allowed mobilization of the urethra. We then irrigated copiously.We secured the mesh to the corpus spongiosum with 3-0 Vicryl suture with the proximal end at point of dissection of central tendon. We used the Advance trocar passers to place the sling through the obturator foramen. There was good positioning noted. The catheter was removed. We then performed flexible cystoscopy. We inspected the urethra in the bladder. There was no injury from sling placement. We then tightened the sling. We did note that the sling did compress nicely. A 12-F Motta catheter was inserted. We then irrigated copiously. We then closed bulbospongiosus muscle with a 2-0 Vicryl suture. We then tunneled the arms of the sling into the perineal incision. We performed multiple layers of closure with 3-0 Vicryl suture and the skin was closed with a 3-0 Vicryl horizontal mattress. We reapproximated the skin at the stab incisions for placement of the trocars with 4-0 Monocryl. Dermabond glue was applied to all incisions. We had scheduled the patient to have concomitant penile implant surgery, however given the complexity the sling placement and therefore higher risk complication, I felt that it would be advisable to postpone penile implant placement to a later date. We placed a scrotal supporter. The catheter was left to gravity. The patient was then awakened and taken to the recovery room in stable condition. Estimated Blood Loss 100 Pathology None sent Complications Other complications (Injury to corpus spongiosum) Disposition PACU
--- NOTE | 2022-12-26 17:58 | ADMGEN ---
This patient, Fred Marie, was admitted to 2 Medical Room 240-01. Patient/family oriented to hospital policies and general routines including ID bracelet, bed and alarms, visiting hours, pain management, procedures, bathroom and other care routines, personal items, smoking policy, room service/diet, and visiting hours. Information on how to activate the Rapid Response Team has been discussed. Patient/Family are encouraged to report perceived risks to care and to ask questions if they do not understand what they are told or what they should do.
[2022-12-26] MEDS: OMEGA 3 POLYUNSAT FATTY ACIDS 1 GM CAP 2 GM PO (18:01)
[2022-12-26] MEDS: HYDROcodone/acetaminophen (*CRX) 5-325 MG TABLET 1 TAB PO ×2 (18:01→22:46)
[2022-12-26] MEDS: DOCUSATE SODIUM 100 MG CAPSULE PO (18:01)
[2022-12-26] MEDS: VANCOMYCIN 1,000 MG/NS 250 ML 1,000 MG/250 ML BAG 250 MG IVPB (21:17)
[2022-12-26] MEDS: PANTOPRAZOLE 40 MG TABLET PO (21:17)
[2022-12-27 03:35] VITALS: BP 102/62; PULSE 78; RESP 17; TEMP 36.2; O2SAT 94
[2022-12-27] MEDS: LEVOTHYROXINE SODIUM 50 MCG TABLET PO (06:01)
[2022-12-27] MEDS: SIMVASTATIN 20 MG TABLET 40 MG PO (08:04)
[2022-12-27] MEDS: DOCUSATE SODIUM 100 MG CAPSULE PO (08:04)
[2022-12-27] MEDS: OMEGA 3 POLYUNSAT FATTY ACIDS 1 GM CAP 2 GM PO (08:04)
[2022-12-27] MEDS: VANCOMYCIN 1,000 MG/NS 250 ML 1,000 MG/250 ML BAG 250 MG IVPB (08:05)
[2022-12-27] MEDS: ENOXAPARIN 30 MG/0.3 ML SYRINGE SUB-Q (08:05)
[2022-12-27] MEDS: GENTAMICIN 80MG/SOD CHL 50 ML 80 MG/50 ML BAG 100 MG IVPB (09:52)
--- NOTE | 2022-12-27 09:53 | PC.NURSE ---
Okay to give gentamicin now before scheduled time per pharmacy due to pre op dose being given around 0900.
--- NOTE | 2022-12-27 10:21 | WPDUROPN2 ---
Progress Note: A&P Assessment and Plan (1) Stress incontinence: Code(s): N39.3 - Stress incontinence (female) (male) Status: Acute Assessment and Plan: Ok to remove raphael, when patient urinates, ok to discharge home after afternoon dose of Gentamycin. If unable to urinate, place a 12 or 14fr catheter and f/u Saturday for another voiding trial. Keep scrotal Support applied. Follow printed d/c instructions. Subjective Subjective Date/Time Seen: 12/27/22 10:21 Post Op day: 1 Interval history: S/P Placement of AMS Advanced Male Sling with Cystoscopy Patient was unable to have simultaneous placement of Implantable Penile Prosthetic d/t intraoperative complications with dissection of suburethral tissue. He is tolerating diet, pain and activity well. Urine is clear. Review of Systems Cardiovascular: Cardiovascular: Denies chest pain Gastrointestinal: Gastrointestinal: Denies abdominal pain, Denies nausea and Denies vomiting Genitourinary: Genitourinary: Denies hematuria, Reports difficulty with ejaculations, Reports erectile dysfunction, Denies flank pain, Denies scrotal swelling and Denies testicular pain Exam Const: General: cooperative and comfortable Resp: Effort & Inspection: normal respiratory effort Cardio: Rate: regular rate GI: GI Palp: Yes Soft to palpation and No Tenderness to palpation present (GI) : General: Yes no CVA tenderness Scrotum: no ecchymosis and other (incision is well approximated, no drainage, edema or bruising.) Urinary Catheter: Urinary Catheter: patent and draining and urine clear Extrem: Right lower extremity: no edema Left lower extremity: no edema Objective Data Vital Signs Vital Signs: Vital Signs - 24 hr 12/26/22 10:30 12/26/22 16:10 12/26/22 16:25 Temperature 97.0 F L 97.4 F L Pulse Rate 52 L 73 72 Respiratory Rate 16 16 16 Blood Pressure 142/98 H 115/70 111/73 Pulse Oximetry 99 100 100 Oxygen Delivery Room Air Simple Face Mask Simple Face Mask Oxygen Flow Rate 8 8 12/26/22 16:40 12/26/22 16:55 12/26/22 17:10 Temperature Pulse Rate 69 75 78 Respiratory Rate 12 14 14 Blood Pressure 108/75 114/58 L 117/90 Pulse Oximetry 100 97 95 Oxygen Delivery Simple Face Mask Room Air Room Air Oxygen Flow Rate 8 12/26/22 17:50 12/26/22 18:05 12/26/22 18:35 Temperature 97.2 F L 97.1 F L 97.3 F L Pulse Rate 70 78 88 Respiratory Rate 16 16 16 Blood Pressure 136/73 131/81 106/59 L Pulse Oximetry 98 96 98 Oxygen Delivery Oxygen Flow Rate 12/26/22 19:35 12/26/22 19:37 12/26/22 23:50 Temperature 97 F L 97 F L 97 F L Pulse Rate 93 93 76 Respiratory Rate 16 15 17 Blood Pressure 101/70 101/70 100/62 Pulse Oximetry 96 96 93 Oxygen Delivery Oxygen Flow Rate 12/27/22 03:35 12/27/22 07:41 Temperature 97.1 F L Pulse Rate 78 Respiratory Rate 17 Blood Pressure 102/62 Pulse Oximetry 94 Oxygen Delivery Room Air Oxygen Flow Rate Intake/Output Intake/Output: Intake & Output 12/24/22 12/25/22 12/26/22 12/27/22 23:59 23:59 23:59 23:59 Intake Total 2481.75 200 Output Total 1000 1000 Balance 1481.75 -800 Meds/Results Medications: Active Medications Generic Name Dose Route Start Last Admin Trade Name Freq PRN Reason Stop Dose Admin Hydrocodone Bitart/Acetaminophen 1 tab 12/26/22 17:30 12/26/22 22:46 Hydrocodone/Acetaminophen (*Crx) 5-325 Mg Tablet PO 1 tab Q4H PRN Administration Pain Rated 1-6 Docusate Sodium 100 mg 12/26/22 17:30 12/27/22 08:04 Docusate Sodium 100 Mg Capsule PO 100 mg BID EMMANUEL Administration Enoxaparin Sodium 30 mg 12/27/22 09:00 12/27/22 08:05 Enoxaparin 30 Mg/0.3 Ml Syringe SUB-Q 30 mg DAILY EMMANUEL Administration Fish Oil 2 gm 12/26/22 17:30 12/27/22 08:04 [place] 3 Polyunsat Fatty Acids 1 Gm Cap PO 2 gm BID EMMANUEL Administration Gentamicin Sulfate/Sodium Chloride 80 mg in 50 mls @ 100 mls/hr 12/27/22 16:26 12/27/22 09:52 Gentamici
[2022-12-27 10:25] VITALS: BP 107/65; PULSE 77; RESP 14; TEMP 36.6; O2SAT 98
--- NOTE | 2022-12-27 11:19 | WPDANESPN ---
Anes - Prog Note Post-Op Date/Time: 12/27/22 11:19 Cardiovascular status: normal Respiratory status: normal Airway patency: baseline Mental status: baseline Post-Op hydration status: normal Vital Signs: Last Vital Signs Temp 97.8 F 12/27/22 10:25 Pulse 77 12/27/22 10:25 Resp 14 12/27/22 10:25 BP 107/65 12/27/22 10:25 Pulse Ox 98 12/27/22 10:25 O2 Del Method Room Air 12/27/22 07:41 O2 Flow Rate 8 12/26/22 16:40 Pain Score (VAS): 0 I/O: Intake & Output 12/26/22 12/27/22 12/27/22 23:59 07:59 15:59 Intake Total 2370 200 720 Output Total 1000 1000 Balance 1370 -800 720 Post-procedural complaints: none Patient Feedback: Patient satisfied with anesthetic care.
== END 2022-12-27 13:05 | disposition home or self-care (01) ==
LOC: ANHSURGERY 08:50 → ANH2MED 17:35
PROVIDERS: PCP Family Medicine; Visit Provider Urology
PROC: (CPT 53440; principal; 2022-12-26 11:00)
PROC: (CPT 53440; 2022-12-26 11:00)
DX: N39.3 Stress incontinence (female) (male) (principal); N52.9 Male erectile dysfunction, unspecified; N99.71 Accidental puncture and laceration of a genitourinary system organ or structure during a genitourinary system procedure; E78.2 Mixed hyperlipidemia; E03.9 Hypothyroidism, unspecified; K21.9 Gastro-esophageal reflux disease without esophagitis; G47.33 Obstructive sleep apnea (adult) (pediatric); Z85.46 Personal history of malignant neoplasm of prostate
CPT/HCPCS: 53440; 36415; 83036; 85014; 85018; 87086; A9270; C1771; C1813; J1100; J1165; J1170; J1580; J1650; J2250; J2405; J2704; J3010; J3370; J7030; J7120; Q9968

== ENCOUNTER 2023-03-05 07:00 | Outpatient (NON) | payer MEDICARE, SELFPAY | END 2023-03-05 07:01 | disposition home or self-care (01) | LOC: ANHLAB 03-06 15:27 | PROVIDERS: PCP Family Medicine; Visit Provider Nurse Practitioner | DX: D23.5 Other benign neoplasm of skin of trunk (principal); L30.8 Other specified dermatitis | CPT/HCPCS: 88305 ==

== ENCOUNTER 2023-04-12 08:05 | Outpatient (CLI) | payer MEDICARE, SELFPAY | END 2023-04-12 08:06 | disposition home or self-care (01) | LOC: ANHSURGERY 08:09 | PROVIDERS: PCP Family Medicine; Visit Provider Urology | DX: N52.9 Male erectile dysfunction, unspecified (principal); Z01.818 Encounter for other preprocedural examination | CPT/HCPCS: 87086 ==

== ENCOUNTER 2023-04-17 03:43 | Day surgery (SDC) | payer MEDICARE, SELFPAY ==
[2023-04-10 08:20] VITALS: BMI 28.5
--- NOTE | 2023-04-10 08:30 | PC.NURSE ---
PRE-OP INSTRUCTIONS, PLEASE READ CAREFULLY Report to the Outpatient Waiting Room, entrance under the green pavilion located off [facility], at time _1000_ on date _04/17/23_. Planned Procedure Time: _1200_. PACK A SMALL OVERNIGHT BAG AND LEAVE IN THE CARE Time changes happen often and if your time is changed the preop area will call you the afternoon before. - You and your visitor will be asked to self-screen and do not enter if you have any COVID symptoms. - A mask is optional within the hospital at this time. -VISITING HOURS 8AM-8PM Patients may have clear liquids (water, carbonated beverages, clear teas, apple juice) until 3 hours prior to surgery (0900 AM) with a maximum of 20 ounces. - No food from midnight until time of surgery Take the following medications with a SIP of water the morning of surgery: _LEVOTHYROXINE, METOPROLOL_ DO NOT STOP ANY OF YOUR OTHER PRESCRIPTION MEDICATIONS PRIOR TO SURGERY ?EXCEPT THE FOLLOWING Medications to discontinue - _PATIENT STATES STOPPING ALL OTC VITAMINS/SUPPLEMENTS & NAPROXEN THIS AM Date to take last dose 04/10/23_ Please no make-up, nail malawian, hairspray, perfume, deodorant, or body powder the day of surgery. No jewelry (including any body piercings) or valuables the day of surgery, leave them at home. Please take a shower or bath the night before, or the morning of, surgery with an antibacterial soap. Wear comfortable, loose fitting clothing. - Jewelry must be removed prior to entering the operating room. Rings and piercings that are not removed may be cut off. - The hospital will not accept responsibility for valuables. - Please leave all valuables, including medications, at home the day of surgery. If you are going home after surgery, a licensed package car driver must drive you home. - NO public transportation without another adult if you receive anesthesia. - We recommend that an adult stay with you for 24 hours following discharge. - We also recommend that you do not drive, make important decision, drink alcoholic beverages, or take any drugs that were not prescribed by your health care provider for at least 24 hours after your discharge time. Follow any additional instructions given to you from your surgeon. If you or anyone in your household have experienced Covid symptoms in the past week, please notify your surgeon or the nurse liaison at the phone number below for possible testing. Telephone instructions given to _PATIENT_and asked if any additional questions and then verbalized understanding. Patient advised to call surgeon office or pre surgery nurse liaison [phone] if any additional questions.
[2023-04-17] VITALS (9 sets, daily range): BP systolic 113–145; BP diastolic 65–88; PULSE 56–89; RESP 12–20; TEMP 36.4–36.6; O2SAT 94–100
[2023-04-17] MEDS: LACTATED RINGERS 1,000 ML 30 ML IV CONT ×2 (10:40→15:12)
--- NOTE | 2023-04-17 12:01 | WPDHPUPDATE1 ---
History and Physical Update Update Date/Time: 04/17/23 12:01 History and Physical has been reviewed, including an updated exam of the patient. There are NO changes in the patient's condition. Risks, benefits, and alternatives have been discussed and questions answered. Patient agrees to proceed with procedure.
[2023-04-17] MEDS: ceFAZolin SODIUM 1 GM VIAL (13:09)
[2023-04-17] MEDS: LIDOCAINE HCL 1% LOCAL INJ 20 ML VIAL INFILTRATE (13:11)
[2023-04-17] MEDS: BUPivacaine HCL 0.25% PF 30 ML VIAL INFILTRATE (13:11)
--- NOTE | 2023-04-17 15:01 | W.PM.PROC2 ---
Procedure Note - Detailed Date of Procedure 04/17/23 Pre-op Diagnosis erectile dysfunction Post-op Diagnosis Same Procedure Performed PROCEDURE PERFORMED 1. Insertion of 3-piece inflatable penile prosthesis. 2. Artificial erection using pharmacological agent. 3. Correction of Peyronie's disease curvature Surgeon Srikanth Banegas MD Anesthesia General Description of Procedure DESCRIPTION OF OPERATION Informed consent obtained, patient taken to the operating room and given preoperative IV antibiotics with vancomycin and gentamicin. Additionally the patient has been taking oral levofloxacin and done a 3-day wash with Hibiclens. The patient was shaved. He was then prepped with Betadine scrub and paint followed by ChloraPrep. Sterile drapes were placed. We again prepped with ChloraPrep. A 16-[place] Mot[place] catheter was inserted with return of clear urine. We then performed a pharmacologically induced erection with dilute lidocaine. There was a symmetric erection with minimal dorsal curvature. We then made a penoscrotal 3 cm transverse incision. We dissected bluntly down to identify the corporal bodies taking great care not to injure the urethra. Stay sutures of 2-0 PDS were placed in the corporal body. We sharply opened the corpora. We then serially dilated with Mathis dilator. We then measured the corpora. Measurements were 10 cm proximally and 9 cm distally. We irrigated and there was no injury. We then performed an identical procedure on the contralateral side. Measurements were 10.5 cm proximal, 8.5 cm distal. Dilators were placed into the corpora bilaterally confirming that there was no crossover. We elected to place an AMS LGX device 18 cm + 1 cm of rear tip extenders. We again irrigated the corporal bodies. We then inserted the prosthesis. We inflated using a surrogate reservoir and the device sat nicely with tips in the mid glans. We then deflated. We then closed the pre-placed 2-0 PDS sutures. We again inflated using the surrogate reservoir at this point there appeared to be approximately 45? of dorsal curvature. We therefore elected to do penile modeling the in order to reduce the Peyronie's disease curvature. Rubber shod clamps were placed on the tubing to the pump, we then placed ventral pressure to the area of maximal curvature taking great care not to injure the urethra. Modeling was performed 2 times for 90seconds. At this point full inflation revealed improvement of curvature down to approximately 30?. This appeared to be an good cosmetic result. We then made a right lower quadrant incision for approximately 3 cm through the pre shins previous inguinal hernia incision. We bluntly dissected down to the external oblique fascia. The fascia was opened. We then the rectus muscle and created a space superiorly in the sub rectus. We emptied the bladder prior to our incision. We then irrigated copiously. We pre-placed 0 Vicryl sutures. We placed the reservoir in the sub rectus space. We fill it with 100 mL and there was no back pressure. We then left 90 mL in the reservoir. Our pre-placed external oblique fascia sutures were closed. We then made a subdartos pouch in the midline for the pump placement. It sat nicely in the inferior scrotum. We then closed the hiatus with 3-0 Vicryl suture. The tubing was then brought up to the abdominal incision. Using the quick connect device, we connected the pump to the reservoir. We then cycled the device again and it functioned nicely. We then removed the stay sutures through the glans. We then again irrigated copiously. We closed the scrotal incision with a longitudinal followed by transverse 3-0 Vicryl sutures and then 3-0 Monocryl skin closure. The right lower quadrant incision was closed with 2-0 Vicryl to Brendan's, 3-0 Vicryl deep dermal layer and a 4-0 Monocryl subcuticular closure. Glue was placed over all incisions. A compressive dressing was placed. Patient was awakened and taken to recovery room in stable
[2023-04-17] MEDS: fentaNYL CITRATE INJ (*CRX) 100 MCG/2 ML VIAL 25 MCG IV PUSH ×3 (15:32→16:04)
[2023-04-17] MEDS: oxyCODONE HCL (*CRX) 5 MG TAB IR PO (16:31)
--- NOTE | 2023-04-17 17:25 | SUR.PHASEII ---
Patient discharged home with urinary catheter. Patient and educated on how to remove raphael catheter tomorrow per Dr. Banegas's orders. All questions and concerns addressed with patient and his prior to discharge.
== END 2023-04-17 17:25 | disposition home or self-care (01) ==
PROVIDERS: PCP Family Medicine; Visit Provider Urology
PROC: (CPT 54360; principal; 2023-04-17 12:00)
DX: N52.31 Erectile dysfunction following radical prostatectomy (principal); N48.6 Induration penis plastica; Z85.46 Personal history of malignant neoplasm of prostate; Z90.79 Acquired absence of other genital organ(s); E78.00 Pure hypercholesterolemia, unspecified; G47.30 Sleep apnea, unspecified
CPT/HCPCS: 54360; 54405; 54235; 87086; 87088; A9270; C1813; J0690; J1100; J1170; J1580; J2250; J2405; J2704; J3010; J3370; J7030; J7120